=== PATIENT | male | born 1945 | race Caucasian/White ===

== ENCOUNTER 2024-02-14 23:01 | Emergency (ER) | payer BC, SELFPAY ==
[2024-02-14 23:04] VITALS: BP 123/69
[2024-02-14 23:07] VITALS: BP 123/69
[2024-02-14 23:10] VITALS: BMI 26.3
[2024-02-15] VITALS: BP 109/56
--- NOTE | 2024-02-15 00:05 | ED.GENMED ---
History of Present Illness
General
Chief Complaint: Fall
Time Seen by Provider: 02/14/24 23:32
History of Present Illness
History of Present Illness:
78-year-old male presents the emergency department for evaluation after a mechanical fall striking the left side of his face and head. He does not take anticoagulants but does admit to drinking 5-6 alcoholic beverages tonight. He reports mild
headache and left arm discomfort. Denies any neck pain or chest pain at this time.
Past History
Past History
ED Past Medical History: HTN, Seizures and Other (Diverticulitis)
ED Past Surgical History: Bowel resection and Orthopedic; Negative Appendectomy, Brain or Cardiac
Social History
Tobacco: Former smoker
Alcohol: Occasional
Drug: Marijuana and Other (Methamphetamines)
Personal:
Living: with family
Employment: Employed
Family History
Family History: Hypertension
Review of Systems
Review of Systems
Allergies reviewed?: Yes
All Other Systems: ROS reviewed and negative except as documented in HPI and ROS
Phy Exam
Physical Exam
Physical Exam:
GEN: Well appearing, NAD, WDWN
Eyes: PERRLA, EOMs intact, no scleral icterus
HENT: NCAT, oral mucosa moist
Lungs: CTAB, no wheezes, rales, rhonchi, normal chest wall excursion
Cardiac: RRR, no M/R/G, no peripheral edema. Radial pulses 2+ bilat
Abdomen: S, NT, ND, NABS, no masses or hepatosplenomegaly
Neuro: AO x 3, no focal deficits to BUE/BLE, normal sensation throughout
MSK: Minor ecchymosis to the left forearm with no gross deformity
Skin: No rashes, petechiae. Normal color, no pallor or jaundice.
Psych: Calm, cooperative, proper hygiene
Course
Orders/Labs/Results
Orders:
Orders
02/15/24 00:05
CT Head W/o Iv Contrast Urgent
Comment:
Reason For Exam: fall head injury on asa
CR Forearm - Left 2 View Urgent
Comment:
Reason For Exam: fall
Vital Signs
Initial and Last Documented VS:
Initial Vital Signs
Temp Pulse Resp BP Pulse Ox
97.8 F 99 16 123/69 93
02/14/24 23:04 02/14/24 23:04 02/14/24 23:04 02/14/24 23:04 02/14/24 23:04
Last Documented Vital Signs
Temp Pulse Resp BP Pulse Ox
98.5 F 79 18 124/76 95
02/15/24 02:36 02/15/24 02:36 02/15/24 02:36 02/15/24 02:00 02/15/24 02:36
MDM/Problems Addressed
MDM/Problems Addressed:
CT of the head unremarkable, left forearm x-ray is unremarkable. Patient does not appear clinically intoxicated on my evaluation. I did discuss the case with his , she is not local however the patient is able to contact public transportation
for ride home.
*Critical Care Note
Total Time (30-74mins, 75-104mins- exclusive of procedures): Not Applicable
ED Attending Note
-
Portions of this chart may have been created with voice recognition software.� Occasional wrong word or��sound alike� substitutions may have occurred due to the inherent limitations of voice recognition software.
Discharge Plan
Departure
Patient Disposition: Home (Routine Discharge)
Date of Disposition: 02/15/24
Time of Disposition: 01:51
Patient with high blood pressure during this ER visit?: No
Discharge Problem:
Alcohol intoxication, Closed head injury
Instructions: Alcohol Intoxication ED
Prescriptions:
No Action
tamsulosin 0.4 MG capsule
0.4 mg PO DAILY
lisinopril [Prinivil] 5 MG tablet
10 mg PO DAILY
celecoxib 200 MG capsule
200 mg PO BID
aspirin 325 MG tablet
325 mg PO DAILY
meloxicam 15 MG tablet
15 mg PO DAILY
oxycodone 5 MG tablet
5 mg PO Q4HPRN PRN (Reason: pain)
Referrals:
UNKNOWN - PT DOES,NOT KNOW [Family Provider] -
Interventions
Interventions:
*Risk Screen - Suicide Last Done: 02/14/24 23:59
*General Assessment Last Done: 02/14/24 23:04
*Neglect/Abuse Screening Last Done: 02/14/24 23:04
*Nursing Disposition Last Done: 02/15/24 02:36
ED-Musculoskeletal Assessment Last Done: 02/14/24 23:59
ED- Neurological Assessment Last Done: 02/14/24 23:59
ED-Skin Assessment Last Done: 02/14/24 23:59
Discharge Date and Time
Discharge Date/Time: 02/15/24 02:37
Print Language: DIVEHI
[2024-02-15 01:00] VITALS: BP 106/75
[2024-02-15 02:00] VITALS: BP 124/76
== END 2024-02-15 02:37 | disposition home or self-care (01) ==
LOC: EMR 23:01
PROVIDERS: EMERGENCY PHYSICIAN Emergency Medicine
DX: S09.90XA Unspecified injury of head, initial encounter (principal); R51.9 Headache, unspecified; S50.12XA Contusion of left forearm, initial encounter; F10.129 Alcohol abuse with intoxication, unspecified; W19.XXXA Unspecified fall, initial encounter; I10 Essential (primary) hypertension; K57.92 Diverticulitis of intestine, part unspecified, without perforation or abscess without bleeding; R56.9 Unspecified convulsions; Z87.891 Personal history of nicotine dependence; Z98.0 Intestinal bypass and anastomosis status; Z88.1 Allergy status to other antibiotic agents; Z88.3 Allergy status to other anti-infective agents; Z88.0 Allergy status to penicillin; Z88.8 Allergy status to other drugs, medicaments and biological substances
CPT/HCPCS: 99284; 70450; 73090